=== PATIENT | female | born 2000 | race African-American/Black ===

== ENCOUNTER 2023-04-20 14:02 | Emergency (ER) | payer SELFPAY ==
[2023-04-20] MEDS ORDERED: Acetaminophen 325 MG TAB ONE (15:11)
== END 2023-04-20 16:12 | disposition home or self-care (01) ==
LOC: MADERS 14:02
DX: B34.9 Viral infection, unspecified (principal)
CPT/HCPCS: 87635; 87804; 99284

== ENCOUNTER 2023-09-22 18:48 | Emergency (ER) | payer MEDICAID, SELFPAY ==
[2023-09-22] MEDS ORDERED: Mag-Al Plus 1200/1200/120 MG (30 mL) UDCUP ONE (19:18)
[2023-09-22] MEDS ORDERED: Ondansetron ODT 4 MG TAB ONE (19:18)
[2023-09-22] MEDS ORDERED: Lidocaine 2% Viscous 100 ML BOTTLE ONE (19:19)
[2023-09-22 19:27] LABS: Pregu Control Background? CLEAR/WHITE (CLR/WHITE); Pregu Control Bar Appear? YES (CONTROL BAR)
[2023-09-22 19:28] LABS: Pregnancy Test - Urine (BHCG) Negative (Negative)
== END 2023-09-22 19:38 | disposition home or self-care (01) ==
LOC: MADERS 18:48
DX: K29.00 Acute gastritis without bleeding (principal)
CPT/HCPCS: 81025; 99284; Q0162

== ENCOUNTER 2025-03-29 17:45 | Emergency (ER) | payer OTHER | END 2025-03-29 18:41 | disposition home or self-care (01) | LOC: MADERS 17:45 | DX: S46.912A Strain of unspecified muscle, fascia and tendon at shoulder and upper arm level, left arm, initial encounter (principal); V79.40XA Driver of bus injured in collision with unspecified motor vehicles in traffic accident, initial encounter | CPT/HCPCS: 99283 ==